=== PATIENT | male | born 1930 | race Caucasian/White ===

== ENCOUNTER 2016-08-28 09:39 | Inpatient (IN) | payer MEDICARE, BC ==
[2016-08-28] VITALS (8 sets, daily range): BP systolic 102–131; BP diastolic 33–71; PULSE 70–76; TEMP 97.4–98.4
[~2016-08-28] VITALS: Ht 167.6 cm; Wt 87.4 kg
[~2016-08-28 09:39] MED LIST: ANTIVERT 12.512.5 MG PO; ASPIRIN E.C. 8181 MG PO; ASPRIN; CARDURA4 MG PO; CEPHALEXIN500 M1 PO; DULCOLAX TAB5 MG PO; EPA FISH OIL1000 MG PO; FLONASE NASAL S16 GM NS; HCTZ12.5TAB PO; LASIX 20MG TABL20 MG PO; LIDODERM 5% PATC1 EA TP; LIDODERM PATCH TP; LIPITOR20 MG PO; NITRO-DUR0.2 MG/PAT TD; NORVASC 5MG5 MG/TAB PO; OMNICEF 300MG300 MG PO; PLAVIX 75MG TAB75 MG PO; PRILOSEC 20MG20 MG PO; PROTONIX 40MG T40 MG PO; TENORMIN 2525 MG/TAB; TOPROL XL 25MG25 MG PO; TYLENOL PM EXTR1 TA1 PO; UROCIT-K 5540 MG/TAB PO; VIT C; VITAMIN B-12100 MCG PO; VITAMIN C500 MG PO; [UNRECOGNIZED DRUG - OTHER] PO
[2016-08-28 10:10] LABS: HEMATOCRIT 46.3 % (42.0-52.0); HEMOGLOBIN 15.1 g/dl (13.5-18.0); MEAN CELL VOLUME 94 fl (80.0-100.0); MEAN CORPUSCULAR HEMOGLOBIN 31 pg (27.0-31.0); MEAN CORPUSCULAR HGB CONC 33 g/dl (33.0-37.0); MEAN PLATELET VOLUME 11.2 fl (7.4-10.4); PLATELET COUNT 188 K/mm3 (130-400); RED BLOOD COUNT 4.95 M/mm3 (4.20-5.60); REDCELL DISTRIBUTION WIDTH-CV 12.8 % (11.5-14.5); WHITE BLOOD COUNT 14.3 K/mm3 (4.8-10.8)
[2016-08-28 10:19] LABS: ADD PATHOLOGY DIFF REVIEW NO
[2016-08-28 10:20] LABS: ADJUSTED CALCIUM 9.2 mg/dL (8.4-10.2); ALBUMIN 3.6 gm/dL (3.5-5.0); BILIRUBIN,TOTAL 1.3 mg/dL (0.0-1.0); C-REACTIVE PROTEIN 0.6 mg/dL (0.0-0.9); CALCIUM 8.9 mg/dL (8.4-10.2); CREATININE, serum 1.65 mg/dL (0.66-1.25); POTASSIUM 3.6 mmol/L (3.4-5.0); TOTAL PROTEIN 6.5 gm/dL (6.4-8.2)
[2016-08-28] MEDS ORDERED: ASPIRIN 81M81 MG/TA2 PO (11:33)
[2016-08-28] MEDS ORDERED: CYMBALTA 60MG60 MG PO (11:35)
[2016-08-28] MEDS ORDERED: TOPROL XL 25MG25 MG PO (11:36)
[2016-08-28] MEDS ORDERED: FLONASEALLERGY NS (11:38)
[2016-08-28 12:15] LABS: BAND 51 % (0-10); NEUTROPHILS 45 % (42.0-75.2); OVALOCYTES 1+; PLATELET ESTIMATE NORMAL (NORMAL); TOTAL CELLS COUNTED 100
[2016-08-28 12:59] LABS: PH 5 (5-8); SQUAMOUS EPITHELIAL 0-2 /hpf; URINE APPEARANCE Cloudy; URINE BACTERIA Moderate /hpf; URINE BILIRUBIN Negative (NEGATIVE); URINE BLOOD 3+ (NEGATIVE); URINE COLOR Yellow; URINE GLUCOSE Negative (NEGATIVE); URINE KETONE Negative (NEGATIVE); URINE RBC 20-50 /hpf; URINE UROBILINOGEN Negative (NEGATIVE)
[2016-08-28 13:00] LABS: URINE WBC >50 /hpf
[2016-08-28] MEDS ORDERED: PROTONIX 40MG T40 MG PO (14:13)
[2016-08-28] MEDS ORDERED: B-12 100 MCG PO (14:14)
[2016-08-29 00:16] VITALS: BP 108/47; PULSE 72; TEMP 97.7
[2016-08-29 06:43] VITALS: BP 109/45; PULSE 71; TEMP 98.1
[2016-08-29 09:52] VITALS: BP 113/53; PULSE 89; TEMP 98.3
[2016-08-29 15:37] LABS: MEAN CELL VOLUME 96 fl (80.0-100.0); MEAN CORPUSCULAR HGB CONC 32 g/dl (33.0-37.0); MEAN PLATELET VOLUME 12.7 fl (7.4-10.4); PLATELET COUNT 128 K/mm3 (130-400); RED BLOOD COUNT 3.83 M/mm3 (4.20-5.60); REDCELL DISTRIBUTION WIDTH-CV 13.6 % (11.5-14.5)
[2016-08-29 15:44] LABS: ADD PATHOLOGY DIFF REVIEW NO; HEMATOCRIT 36.6 % (42.0-52.0); HEMOGLOBIN 11.8 g/dl (13.5-18.0); MEAN CORPUSCULAR HEMOGLOBIN 31 pg (27.0-31.0)
[2016-08-29 16:13] VITALS: TEMP 98.5
[2016-08-29 16:14] LABS: BAND 22 % (0-10); NEUTROPHILS 73 % (42.0-75.2); TOTAL CELLS COUNTED 100
[2016-08-29 16:15] LABS: PLATELET ESTIMATE NORMAL (NORMAL)
[2016-08-29 20:00] VITALS: BP 116/43; PULSE 59; TEMP 98.5
[2016-08-30] VITALS (8 sets, daily range): BP systolic 119–147; BP diastolic 2–72; PULSE 66–78; TEMP 97.6–99.9
[2016-08-30 08:01] LABS: HEMATOCRIT 39.7 % (42.0-52.0); HEMOGLOBIN 12.8 g/dl (13.5-18.0); MEAN CELL VOLUME 95 fl (80.0-100.0); MEAN CORPUSCULAR HEMOGLOBIN 31 pg (27.0-31.0); MEAN CORPUSCULAR HGB CONC 32 g/dl (33.0-37.0); MEAN PLATELET VOLUME 12.9 fl (7.4-10.4); PLATELET COUNT 112 K/mm3 (130-400); RED BLOOD COUNT 4.17 M/mm3 (4.20-5.60); REDCELL DISTRIBUTION WIDTH-CV 13.7 % (11.5-14.5); WHITE BLOOD COUNT 15.6 K/mm3 (4.8-10.8)
[2016-08-30 08:05] LABS: ADD PATHOLOGY DIFF REVIEW NO
[2016-08-30 08:09] LABS: ADJUSTED CALCIUM 9.2 mg/dL (8.4-10.2); CALCIUM 8.4 mg/dL (8.4-10.2); CREATININE, serum 1.93 mg/dL (0.66-1.25); POTASSIUM 3.7 mmol/L (3.4-5.0); TOTAL PROTEIN 5.9 gm/dL (6.4-8.2)
[2016-08-30 13:13] LABS: BAND 16 % (0-10); BASOPHIL 1 % (0-2); METAMYELOCYTE 1 % (0-0); MYELOCYTE 3 % (0-0); NEUTROPHILS 72 % (42.0-75.2); PLATELET ESTIMATE DECREASED (NORMAL); TOTAL CELLS COUNTED 100
[2016-08-30 13:17] LABS: ANISOCYTOSIS 1+; BURR CELLS 1+; DOHLE BODIES PRESENT; TOXIC GRANULATION PRESENT
[2016-08-30 16:35] LABS: PH 5 (5-8); SQUAMOUS EPITHELIAL 0-2 /hpf; URINE APPEARANCE Hazy; URINE BACTERIA Rare /hpf; URINE BILIRUBIN Negative (NEGATIVE); URINE BLOOD 3+ (NEGATIVE); URINE COLOR Yellow; URINE GLUCOSE Negative (NEGATIVE); URINE KETONE Negative (NEGATIVE); URINE RBC >50 /hpf; URINE UROBILINOGEN Negative (NEGATIVE); URINE WBC 20-50 /hpf
[2016-08-31 01:36] VITALS: BP 129/58; PULSE 65; TEMP 98.7
[2016-08-31 05:12] VITALS: BP 120/59; PULSE 59; TEMP 98.8
[2016-08-31 07:21] LABS: MEAN CELL VOLUME 95 fl (80.0-100.0); MEAN CORPUSCULAR HGB CONC 32 g/dl (33.0-37.0); MEAN PLATELET VOLUME 12.7 fl (7.4-10.4); PLATELET COUNT 91 K/mm3 (130-400); RED BLOOD COUNT 3.69 M/mm3 (4.20-5.60); REDCELL DISTRIBUTION WIDTH-CV 13.5 % (11.5-14.5); WHITE BLOOD COUNT 8.5 K/mm3 (4.8-10.8)
[2016-08-31 07:24] LABS: HEMOGLOBIN 11.3 g/dl (13.5-18.0); MEAN CORPUSCULAR HEMOGLOBIN 31 pg (27.0-31.0)
[2016-08-31 07:25] LABS: ADD PATHOLOGY DIFF REVIEW NO
[2016-08-31 07:32] LABS: CALCIUM 8.2 mg/dL (8.4-10.2); CREATININE, serum 1.72 mg/dL (0.66-1.25); POTASSIUM 3.6 mmol/L (3.4-5.0)
[2016-08-31 08:54] LABS: PH 5 (5-8); SQUAMOUS EPITHELIAL None Seen /hpf; URINE APPEARANCE Hazy; URINE BACTERIA Rare /hpf; URINE BILIRUBIN Negative (NEGATIVE); URINE BLOOD 3+ (NEGATIVE); URINE COLOR Yellow; URINE GLUCOSE Negative (NEGATIVE); URINE KETONE Trace (NEGATIVE); URINE RBC >50 /hpf; URINE UROBILINOGEN Negative (NEGATIVE); URINE WBC 20-50 /hpf
[2016-08-31 09:47] VITALS: BP 147/55; PULSE 60; TEMP 98.9
[2016-08-31 12:20] LABS: BAND 6 % (0-10); EOSINOPHIL 3 % (0-4); NEUTROPHILS 74 % (42.0-75.2); TOTAL CELLS COUNTED 100
[2016-08-31 12:21] LABS: PLATELET ESTIMATE NORMAL (NORMAL)
[2016-08-31 13:24] VITALS: BP 142/59; PULSE 67; TEMP 98.8
[2016-08-31] MEDS ORDERED: MIRALAX PA17 GM/Dose PO (13:56)
[2016-08-31] MEDS ORDERED: CEPHALEXIN500 M1 PO (13:56)
[2016-08-31] MEDS ORDERED: FLOMAX 0.40.4 MG/CAP PO (13:56)
[2016-08-31] MEDS ORDERED: DULCOLAX S10 MG/SUPP RC (13:56)
[2016-08-31 15:24] VITALS: BP 142/59; PULSE 67; TEMP 98.8
== END 2016-08-31 16:04 | DRG 690 ==
LOC: COL.ER 09:39 → SURG 12:51
PROVIDERS: Family Medicine; Physician Assistant; Urology
PROC: 0T768DZ Dilation of Right Ureter with Intraluminal Device, Via Natural or Artificial Opening Endoscopic (ICD-10-PCS; principal; 2016-08-28 16:30)
PROC: BT1D1ZZ Fluoroscopy of Right Kidney, Ureter and Bladder using Low Osmolar Contrast (ICD-10-PCS; 2016-08-28 16:30)
DX: N13.6 Pyonephrosis (principal); I10 Essential (primary) hypertension; I25.10 Atherosclerotic heart disease of native coronary artery without angina pectoris; Z95.5 Presence of coronary angioplasty implant and graft; F17.290 Nicotine dependence, other tobacco product, uncomplicated; N17.9 Acute kidney failure, unspecified; D69.6 Thrombocytopenia, unspecified; B96.20 Unspecified Escherichia coli [E. coli] as the cause of diseases classified elsewhere
CPT/HCPCS: 99222; 99232-AI; 99233-AI; A9284; C1769; C2617; G0378; G8987-GO; G8988-GO; J0690; J0692; J1100; J1200; J1580; J1644; J2370; J2405; J2704; J3010; J7030; Q9967

== ENCOUNTER 2016-09-07 10:58 | Day surgery (SDC) | payer MEDICARE, BC ==
[~2016-09-07] VITALS: Ht 170.2 cm; Wt 85.3 kg
[~2016-09-07 10:58] MED LIST changes: +ASPIRIN 81M81 MG/TA2 PO; +B-12 100 MCG PO; +CYMBALTA 60MG60 MG PO; +DULCOLAX S10 MG/SUPP RC; +FLOMAX 0.40.4 MG/CAP PO; +FLONASEALLERGY NS; +MIRALAX PA17 GM/Dose PO
[2016-09-07 12:12] VITALS: BP 127/66; PULSE 66; TEMP 98.1
[2016-09-07 14:55] VITALS: BP 134/57; PULSE 62; TEMP 98.3
[2016-09-07 15:10] VITALS: BP 145/59; PULSE 59
[2016-09-07 15:11] VITALS: TEMP 97.8
[2016-09-07 15:25] VITALS: BP 135/52; PULSE 58
[2016-09-07 15:40] VITALS: BP 122/45; PULSE 61
[2016-09-07] MEDS ORDERED: PYRIDIUM 100MG100 MG PO (15:42)
[2016-09-07] MEDS ORDERED: COLACE 100100 MG/CAP PO (15:42)
[2016-09-07] MEDS ORDERED: NORCO 325 MG-51 TAB PO (15:43)
== END 2016-09-07 16:20 | disposition home or self-care (01) ==
LOC: SDCO 10:58
DX: N20.1 Calculus of ureter (principal); N39.0 Urinary tract infection, site not specified; I48.91 Unspecified atrial fibrillation; E78.00 Pure hypercholesterolemia, unspecified; K21.9 Gastro-esophageal reflux disease without esophagitis; N40.0 Benign prostatic hyperplasia without lower urinary tract symptoms; M17.9 Osteoarthritis of knee, unspecified; B02.29 Other postherpetic nervous system involvement; I25.10 Atherosclerotic heart disease of native coronary artery without angina pectoris; D69.6 Thrombocytopenia, unspecified; K44.9 Diaphragmatic hernia without obstruction or gangrene; N40.2 Nodular prostate without lower urinary tract symptoms; F17.210 Nicotine dependence, cigarettes, uncomplicated; I13.0 Hypertensive heart and chronic kidney disease with heart failure and stage 1 through stage 4 chronic kidney disease, or unspecified chronic kidney disease; N18.3 Chronic kidney disease, stage 3 (moderate); Z79.01 Long term (current) use of anticoagulants; I50.9 Heart failure, unspecified; Z95.0 Presence of cardiac pacemaker; D64.9 Anemia, unspecified; Z87.442 Personal history of urinary calculi; Z86.19 Personal history of other infectious and parasitic diseases; Z82.49 Family history of ischemic heart disease and other diseases of the circulatory system; Z86.010 Personal history of colon polyps; Z96.0 Presence of urogenital implants
CPT/HCPCS: C1769; J0690; J1100; J1885; J1940; J2405; J2704; J3010; J7120; Q9967

== ENCOUNTER 2018-03-31 09:49 | Inpatient (IN) | payer MEDICARE, BC ==
[~2018-03-31] VITALS: Ht 170.2 cm; Wt 86.3 kg
[~2018-03-31 09:49] MED LIST changes: +COLACE 100100 MG/CAP PO; +NORCO 325 MG-51 TAB PO; +PYRIDIUM 100MG100 MG PO
[2018-03-31 10:19] LABS: BASO # 0.1 (0.0-0.2); BASO % 0.6 % (0.0-2.0); EOS # 0.1 (0.0-0.7); GRAN # 7.8 (1.4-6.5); HEMOGLOBIN 14.8 g/dl (13.5-18.0); LYMPH # 2.4 (1.2-3.4); LYMPH % 20.9 % (20.0-51.0); MEAN CELL VOLUME 96 fl (80.0-100.0); MEAN CORPUSCULAR HEMOGLOBIN 31 pg (27.0-31.0); MEAN CORPUSCULAR HGB CONC 32 g/dl (33.0-37.0); MEAN PLATELET VOLUME 10.9 fl (7.4-10.4); MONO # 0.9 (0.1-0.6); MONO % 8.1 % (1.7-9.3); PLATELET COUNT 207 K/mm3 (130-400); RED BLOOD COUNT 4.78 M/mm3 (4.20-5.60); REDCELL DISTRIBUTION WIDTH-CV 12.9 % (11.5-14.5)
[2018-03-31 10:23] LABS: PROTHROMBIN TIME 11.1 SECONDS (9.7-12.8)
[2018-03-31 10:26] LABS: PARTIAL THROMBOPLASTIN TIME 29.3 SECONDS (26.0-37.0)
[2018-03-31 10:29] LABS: ALBUMIN 3.6 gm/dL (3.5-5.0); BILIRUBIN,TOTAL 0.8 mg/dL (0.0-1.0); CALCIUM 9.4 mg/dL (8.4-10.2); CREATININE, serum 1.33 mg/dL (0.66-1.25); POTASSIUM 4.2 mmol/L (3.4-5.0); TOTAL PROTEIN 6.7 gm/dL (6.4-8.2)
[2018-03-31 10:41] LABS: TROPONIN-I 0.024 ng/mL (0.000-0.035)
[2018-03-31 15:53] VITALS: BP 151/71; PULSE 59; TEMP 98.4
--- NOTE | 2018-03-31 18:27 | NUR ---
Pt stable this shift. Pt rates pain 3/10 in left abdomen. Pt alert and oriented. Pt denies SOB. Pt uses urinal. Pt placed on NPO by dr. plata. CArdiology Dr. Billings consulted and ECHO ordered for 04/01/18. Pt has call light in reach and spouse at bedside. Pt denies needs at this time.
[2018-03-31 20:27] VITALS: BP 142/63; PULSE 87; TEMP 98.6
[2018-03-31 23:33] VITALS: BP 132/54; PULSE 58; TEMP 98
--- NOTE | 2018-04-01 00:13 | NUR ---
Completed assessment and medication assessment; NS running at 75ml/hr to LAC wrapped with JIM for support; PT NPO for pending ECHO 04/01/18; A&Ox3, BS active x4, LCTA with bilateral bases diminished; bilateral hearing aides and glassess; PT requested to rest as possible d/t general fatigue from acute illness; PT denies further needs at time of exit; call light placed within reach; will continue to monitor. CDA
--- NOTE | 2018-04-01 03:13 | NUR ---
PT resting intermittently in bed throughout shift; IV running at 75ml/hr to LAC; No further requests or needs at tie of exit; Will continue to monitor. CDA
[2018-04-01 06:42] LABS: BASO % 0.5 % (0.0-2.0); EOS # 0.1 (0.0-0.7); EOS % 1.7 % (0-4.0); GRAN # 5.2 (1.4-6.5); HEMATOCRIT 42.8 % (42.0-52.0); LYMPH # 2.1 (1.2-3.4); LYMPH % 25.6 % (20.0-51.0); MEAN CELL VOLUME 96 fl (80.0-100.0); MEAN CORPUSCULAR HEMOGLOBIN 32 pg (27.0-31.0); MEAN CORPUSCULAR HGB CONC 33 g/dl (33.0-37.0); MEAN PLATELET VOLUME 11.5 fl (7.4-10.4); MONO # 0.7 (0.1-0.6); MONO % 8.8 % (1.7-9.3); PLATELET COUNT 177 K/mm3 (130-400); RED BLOOD COUNT 4.45 M/mm3 (4.20-5.60)
[2018-04-01 07:03] LABS: CHOLESTEROL RISK RATIO 3.2; CREATININE, serum 1.16 mg/dL (0.66-1.25)
--- NOTE | 2018-04-01 07:17 | NUR ---
Report given to NANO Chaparro. CDA
[2018-04-01 08:26] VITALS: BP 146/56; PULSE 57; TEMP 98.1
--- NOTE | 2018-04-01 09:50 | NUR ---
Pt alert and oriented. Pt reports some nausea this am. Pt given PRN Zofran. Pt am assessment completed. Pt also given am medications as ordered and edu as given. Pt converses appropriately and likes to talk about fishing stories and family. Pt denies pain or SOB. Pt has call light in reach and remains NPO.
[2018-04-01 11:02] VITALS: BP 145/64; PULSE 56; TEMP 98.2
--- NOTE | 2018-04-01 11:39 | NUR ---
Plan to return home with Hernan . Patient reports that [place] of [place] with his and she is the primary care contact. Patient reports tath she is to use a walker or cane but does not use it. Patient shares that he has a DPOA and they have nieghbors that help with snow removal and odds and ends. Patient shares that they use [facility] for medications and PCP is Dr. Mercado. Denies the use of home health care. Action:SW provided homehealth care options, educated on resources and services in the area. No additional needs identified.
[2018-04-01 16:35] VITALS: BP 132/60; PULSE 54; TEMP 98.3
[2018-04-01 16:47] LABS: HEMATOCRIT 41.1 % (42.0-52.0); HEMOGLOBIN 13.6 g/dl (13.5-18.0); MEAN CELL VOLUME 95 fl (80.0-100.0); MEAN CORPUSCULAR HEMOGLOBIN 31 pg (27.0-31.0); MEAN CORPUSCULAR HGB CONC 33 g/dl (33.0-37.0); MEAN PLATELET VOLUME 11.5 fl (7.4-10.4); PLATELET COUNT 174 K/mm3 (130-400); RED BLOOD COUNT 4.33 M/mm3 (4.20-5.60)
[2018-04-01 16:57] LABS: PROTHROMBIN TIME 11.7 SECONDS (9.7-12.8)
[2018-04-01 16:59] LABS: PARTIAL THROMBOPLASTIN TIME 31.8 SECONDS (26.0-37.0)
--- NOTE | 2018-04-01 18:22 | NUR ---
Pt stable and resting in bed. Diet advanced to low fat by GI. Pt started on Heparin gtt at 1630 at 10ml/hour. Recheck Hep Xa ordered for 2229. Pt denies pain. Pt IV dc'd from left AC because pt requested d/t beeping continuously. Pt IV started in left and right forearm. Pt has call light in reach.
[2018-04-01 19:56] VITALS: BP 140/77; PULSE 77; TEMP 98
--- NOTE | 2018-04-01 20:45 | NUR ---
Completed assessment and medication administration; PT tolerated all cares well; PT denies pain or discomfort at time of assessment; PT continues Heparin drip therapy as order; Bilateral forearm IVs in place; Alert and confused with intermittent reorientation needed; BS active x4; x1 assist for cares; NS continues at 75ml/hr. PT denies further needs at time of exit; Call light reeducated and placed within reach; Will continue to monitor. CDA
--- NOTE | 2018-04-02 00:20 | NUR ---
Checked on PT reported to have TELE off; PT found on side of bed with both forearm IVs personally removed, gown removed, blood on all surfaces; PT stated that he woke up thinking he was at home and hoped out of bed to start getting ready. PT appeared to be easily reoriented. IVs attempting to be replaced and labs in for redraw at this time. CDA
[2018-04-02 01:13] LABS: PARTIAL THROMBOPLASTIN TIME 97.3 SECONDS (26.0-37.0)
--- NOTE | 2018-04-02 02:00 | NUR ---
Critical lab value received: Heparin XA 0.86: order changed per protocol - restarted at 7ml/hr - after holding for 2hrs and redrawal completed with less than 1.0 value. Received a critical value of 1.02 at approximateyl 2250 04/01/18. Next reassessment 0805. New IV initiation to both UE. CDA
[2018-04-02 02:41] VITALS: BP 147/68; PULSE 59; TEMP 98.2
--- NOTE | 2018-04-02 03:05 | NUR ---
PT resting well in bed with new IV placed to BLE; Heparin reinitated approximately 0200 at new rate of 7ml/hr; PT declined further needs at time of rounds; New IVs wrapped for safety; Call light placed within reach; Will continue to monitor. CDA
--- NOTE | 2018-04-02 06:45 | NUR ---
CALL EO ROOM BY RN BRIGIDO PT SATS DROPPING. RR 40 HR 160. EKG DONE. DUONEB TX GIVEN. COARSE BREATH SOUNDS THROUGHOUT. INCREASED FIO2 T0 100%/
--- NOTE | 2018-04-02 06:45 | NUR ---
Report given to NANO Chaparro. CDA
[2018-04-02 07:30] VITALS: BP 119/63; PULSE 62; TEMP 97.6
[2018-04-02 11:46] VITALS: BP 122/52; PULSE 63; TEMP 98.1
--- NOTE | 2018-04-02 14:15 | NUR ---
Pt given discharge instructions and edu on discharge follow up with Dr. Fields in 1-2wks. Pt and spouse verbalize understanding of discharge instructions and edu. Pt IV's dc'd. Tips intact and no redness or infiltration noted. Pressure drsg applied. Pt assisted with getting dressed and escorted out via wheelchair by aide without incident.
== END 2018-04-02 14:47 | disposition home or self-care (01) | DRG 438 ==
LOC: COL.ER 09:49 → MEDICAL 13:00 → COL.ER 13:00 → MEDICAL 04-02 03:00
PROVIDERS: Emergency Medicine; Physician Assistant; Student in an Organized Health Care Education/Training Program; ADMIT Internal Medicine
DX: K85.20 Alcohol induced acute pancreatitis without necrosis or infection (principal); I21.A1 Myocardial infarction type 2; F10.188 Alcohol abuse with other alcohol-induced disorder; N17.9 Acute kidney failure, unspecified; B02.29 Other postherpetic nervous system involvement; Z95.0 Presence of cardiac pacemaker; Z95.5 Presence of coronary angioplasty implant and graft; I25.10 Atherosclerotic heart disease of native coronary artery without angina pectoris; E78.5 Hyperlipidemia, unspecified; Z88.2 Allergy status to sulfonamides; Z88.8 Allergy status to other drugs, medicaments and biological substances; I12.9 Hypertensive chronic kidney disease with stage 1 through stage 4 chronic kidney disease, or unspecified chronic kidney disease; N18.9 Chronic kidney disease, unspecified; K21.9 Gastro-esophageal reflux disease without esophagitis; N40.0 Benign prostatic hyperplasia without lower urinary tract symptoms
CPT/HCPCS: 99223-AI; 99233-AI; 99239; J1644; J2405; J3010; J7030; Q9967

== ENCOUNTER 2018-04-21 02:44 | Emergency (ER) | payer MEDICARE, BC ==
[~2018-04-21] VITALS: Ht 152.4 cm; Wt 86.4 kg
[2018-04-21 03:05] LABS: HEMATOCRIT 41.3 % (42.0-52.0); HEMOGLOBIN 13.6 g/dl (13.5-18.0); MEAN CELL VOLUME 95 fl (80.0-100.0); MEAN CORPUSCULAR HEMOGLOBIN 31 pg (27.0-31.0); MEAN CORPUSCULAR HGB CONC 33 g/dl (33.0-37.0); MEAN PLATELET VOLUME 10.9 fl (7.4-10.4); PLATELET COUNT 219 K/mm3 (130-400); RED BLOOD COUNT 4.33 M/mm3 (4.20-5.60); REDCELL DISTRIBUTION WIDTH-CV 13.2 % (11.5-14.5)
[2018-04-21 03:20] LABS: ALBUMIN 3.6 gm/dL (3.5-5.0); C-REACTIVE PROTEIN 1.3 mg/dL (0.0-0.9); CALCIUM 9.3 mg/dL (8.4-10.2); CREATININE, serum 1.37 mg/dL (0.66-1.25); POTASSIUM 3.8 mmol/L (3.4-5.0); TOTAL PROTEIN 6.5 gm/dL (6.4-8.2)
[2018-04-21 03:30] LABS: TROPONIN-I 0.049 ng/mL (0.000-0.035)
[2018-04-21] MEDS ORDERED: CEPHALEXIN500 M1 (03:36)
[2018-04-21 03:55] LABS: COLLECTION METHOD CATHETER
[2018-04-21 03:58] LABS: BAND 13 % (0-10); HYPOCHROMIA 1+; LYMPHOCYTE 3 % (20.0-51.0); METAMYELOCYTE 1 % (0-0); NEUTROPHILS 82 % (42.0-75.2); PLATELET ESTIMATE NORMAL (NORMAL)
[2018-04-21 03:59] LABS: TEAR DROP CELLS 1+
[2018-04-21 04:00] LABS: PH 5 (5-8); SQUAMOUS EPITHELIAL None Seen /hpf; URINE APPEARANCE Clear; URINE BACTERIA None Seen /hpf; URINE BILIRUBIN Negative (NEGATIVE); URINE BLOOD Negative (NEGATIVE); URINE COLOR Yellow; URINE GLUCOSE Negative (NEGATIVE); URINE KETONE Negative (NEGATIVE); URINE LEUKOCYTE ESTERASE Trace (NEGATIVE); URINE NITRATE Negative (NEGATIVE); URINE PROTEIN(semi-quant) Negative (NEGATIVE); URINE RBC 0-2 /hpf; URINE UROBILINOGEN Negative (NEGATIVE)
[2018-04-21 05:12] VITALS: TEMP 98.7
[2018-04-21 07:30] VITALS: BP 99/36; PULSE 74
== END 2018-04-21 08:04 | disposition short-term general hospital (02) ==
LOC: COL.ER 02:44
PROVIDERS: Emergency Medicine
DX: A41.9 Sepsis, unspecified organism (principal); R79.89 Other specified abnormal findings of blood chemistry; Z96.0 Presence of urogenital implants; Z95.0 Presence of cardiac pacemaker
CPT/HCPCS: J2543; J7030; Q9967

== ENCOUNTER 2018-05-02 13:06 | Day surgery (SDC) | payer MEDICARE, BC ==
[2018-05-02] VITALS (13 sets, daily range): BP systolic 120–152; BP diastolic 54–78; PULSE 43–63; TEMP 97.5–98.4
[~2018-05-02] VITALS: Ht 170.2 cm; Wt 84.7 kg
[~2018-05-02 13:06] MED LIST changes: +CEPHALEXIN500 M1
[2018-05-02] MEDS ORDERED: AMOXICILLIN 8751 TAB PO (14:35)
[2018-05-02] MEDS ORDERED: PREDNISONE 5MG5 MG PO (14:38)
--- NOTE | 2018-05-02 14:41 | NUR ---
REVIEWED MEDS WITH PATIENT AND HIS . PATIENTS WRITTEN OUT A LIST OF CURRENT MEDS.
--- NOTE | 2018-05-02 14:42 | NUR ---
TO RM 1 AT 1340- CALL LIGHT IN REACH AT BEDSIDE
--- NOTE | 2018-05-02 18:27 | NUR ---
Patient arrived in room at 181. CBI running at a moderate rate. LR infusing. Patient states he can't feel his feet and was wondering when he can get up. Bed alarm set. Post-op vitals initiated. Oriented to room and how to use call light. at bedside. Will monitor.
--- NOTE | 2018-05-02 18:34 | NUR ---
Patient continues to report numbness in bilateral legs.
--- NOTE | 2018-05-02 21:00 | NUR ---
Shift assessment complete. Patient a/ox3, with some short memory deficits. Denies pain. CBI patent, urine noted to be pale pink in tubing. CBI slowed down. Will continue to monitor.
--- NOTE | 2018-05-02 21:15 | NUR ---
Patient ambulated from bed, bed alarm going off. Patient reoriented. States he has to have a BM. Patient [place] [facility] [place]. CBI catheter pulled slightly due to abrupt movement out of bed. Catheter site noted to be bleeding, small amount. CBI still patent. Will continue to monitor. Patient denies pain.
--- NOTE | 2018-05-02 22:00 | NUR ---
CBI catheter site assessed due to previous trauma/bleeding from abrupt movement. Blood dried at catheter site. CBI still patent. Patient denies pain. Will continue to assess.
[2018-05-03 03:13] VITALS: BP 134/61; PULSE 59; TEMP 98.3
--- NOTE | 2018-05-03 03:58 | NUR ---
Patient in bed, sleeping. CBI patent, pink urine noted in tubing. Will continue to assess.
[2018-05-03 09:07] VITALS: BP 152/66; PULSE 59; TEMP 98.3
--- NOTE | 2018-05-03 10:55 | NUR ---
Initial visit; Patient thanked Mechanical Meter Tester for looking in on him and offering God's blessings and to keep him in her prayers.
[2018-05-03 11:20] VITALS: BP 123/76; PULSE 60; TEMP 97.6
--- NOTE | 2018-05-03 14:24 | NUR ---
Monet, with [facility], informed DOROTHY iniguez that the patient has been in and out of the hospital the past couple of weeks. Christa talked with the patient and patient's about a skilled stay at [facility] as the patient's PCP is Dr. Lopez. Monet reports she will look into his prior hospitalizations at other hospitals to see if patient qualifies with Medicare. DOROTHY iniguez met with patient and patient's (Sandy) to discuss discharge plan. The patient lives in [place] with his . The patient's PCP is Dr. Lopez and he receives his medications from [facility]. The patient states he has been using a walker regularly the past month and reports increased weakness the past few weeks. The patient and patient's believe they have completed a DPOA-HC and state that it might be at [facility] or Dr. Ambriz's office. DOROTHY iniguez to request copy from Monet at [facility]. DOROTHY iniguez discussed post-acute rehab with the patient and patient's . Both were open to looking into a stay at [facility]. DOROTHY iniguez presented and explained the patient choice form. Patient verbalized understanding and signed form. DOROTHY iniguez provided a copy. DOROTHY iniguez to send referral to Monet. DOROTHY to continue to follow.
[2018-05-03 17:25] VITALS: BP 133/60; PULSE 61; TEMP 98.7
--- NOTE | 2018-05-03 19:26 | NUR ---
END OF SHIFT NOTE. PATIENT A&O. VSS. ARTEAGA CATHETER TO DEPENDENT DRAINAGE. CBI INFUSING AT A SLOW RATE. DRAINAGE IN CATHETER BAG PINK-TINGED. REPORT GIVEN TO NANO OLIVA.
[2018-05-03 20:00] VITALS: BP 148/76; PULSE 79; TEMP 97.9
[2018-05-04] VITALS: BP 148/62; PULSE 61; TEMP 98
[2018-05-04 04:00] VITALS: BP 146/68; PULSE 63; TEMP 97.9
--- NOTE | 2018-05-04 04:52 | NUR ---
Pt slept during the night, did not have C/O pain during the shift, C/O leakage around the catheter at times, CBI is clamped off and Pt is producing yellow urine without clots noted, shift assessments completed without noted issues, VS have remained stable during the night.
[2018-05-04 08:00] VITALS: BP 146/62; PULSE 64; TEMP 98.2
--- NOTE | 2018-05-04 08:00 | NUR ---
Pt resting in bed A&Ox3. No distress or complaints of shortness or breath. Pt IV infusing at 100mL/hr IV site remains clean,dry and intact with no redness. CBI clamped off prime and pull done at 0800 infused approximently 200mL of solution. Removed peterson with 35mL of solution from ballon, ballon remains intact and started 6 cup.
--- NOTE | 2018-05-04 08:00 | NUR ---
PATIENT A&O. IRREGULAR HEART RHYTHM WITH REGULAR RATE NOTED, OTHERWISE VSS. BOWEL SOUNDS ACTIVE ALL FOUR QUADRANTS. PATIENT TOLERATING FOOD & LIQUIDS WITHOUT ANY COMPLAINTS OF N/V. POSITIVE PEDAL PULSES EQUAL BILATERALLY. 1+ PITTING-EDEMA TO BLE. 3-WAY ARTEAGA CATHETER TO DEPENDENT DRAINAGE WITH RED-TINGED URINE PRESENT IN ARTEAGA BAG AND CBI CLAMPED. IV FLUIDS INFUSING TO LEFT HAND IV. CALL LIGHT WITHIN REACH. BREAKFAST TRAY ORDERED. PATIENT DENIES ANY OTHER NEEDS AT THIS TIME.
--- NOTE | 2018-05-04 11:50 | NUR ---
PATIENT'S LEFT HAND INT DC'D PER PENDING DISCHARGE. PATIENT TOLERATED WELL.
--- NOTE | 2018-05-04 11:58 | NUR ---
[facility] accepted patient for skilled stay, nurse informed.
--- NOTE | 2018-05-04 13:12 | NUR ---
Patient is dc to [facility] for senior care today via wheelchair van at 1345. SW faxed dc orders and informed nurse of time. All parties agreeable. No other discharge needs at this time.
[2018-05-04 13:27] VITALS: BP 146/62; PULSE 64; TEMP 98.2
--- NOTE | 2018-05-04 13:56 | NUR ---
REPORT CALLED TO NANO CORDERO AT [facility].
--- NOTE | 2018-05-04 14:00 | NUR ---
PATIENT PERSONAL BELONGINGS GATHERED AND SENT WITH PATIENT'S . PATIENT TAKEN TO PRIVATE TRANSPORT VEHICLE VIA WHEELCHAIR. PATIENT TRANSFERRED.
== END 2018-05-04 14:00 ==
LOC: SDCO 13:06 → SURG 18:15 → SDCO 05-04 14:00
DX: N40.1 Benign prostatic hyperplasia with lower urinary tract symptoms (principal); N13.8 Other obstructive and reflux uropathy; R39.15 Urgency of urination; R33.9 Retention of urine, unspecified; R39.12 Poor urinary stream; I48.91 Unspecified atrial fibrillation; M17.0 Bilateral primary osteoarthritis of knee; K21.9 Gastro-esophageal reflux disease without esophagitis; K44.9 Diaphragmatic hernia without obstruction or gangrene; E78.00 Pure hypercholesterolemia, unspecified; Z98.61 Coronary angioplasty status; I25.10 Atherosclerotic heart disease of native coronary artery without angina pectoris; I13.0 Hypertensive heart and chronic kidney disease with heart failure and stage 1 through stage 4 chronic kidney disease, or unspecified chronic kidney disease; N18.3 Chronic kidney disease, stage 3 (moderate); I50.9 Heart failure, unspecified; F17.290 Nicotine dependence, other tobacco product, uncomplicated; D69.6 Thrombocytopenia, unspecified; D64.9 Anemia, unspecified; I34.0 Nonrheumatic mitral (valve) insufficiency; Z87.442 Personal history of urinary calculi; G51.0 Bell's palsy; B02.29 Other postherpetic nervous system involvement; Z90.49 Acquired absence of other specified parts of digestive tract; Z79.82 Long term (current) use of aspirin; Z79.899 Other long term (current) drug therapy; Z95.0 Presence of cardiac pacemaker
CPT/HCPCS: OP; J0690; J2405; J2704; J3010; J3480; J7120; J7512

== ENCOUNTER 2018-09-24 14:58 | Emergency (ER) | payer MEDICARE, BC ==
[~2018-09-24] VITALS: Ht 170.2 cm; Wt 77.3 kg
[~2018-09-24 14:58] MED LIST changes: +AMOXICILLIN 8751 TAB PO; +PREDNISONE 5MG5 MG PO
[2018-09-24 15:08] VITALS: TEMP 98.2
[2018-09-24 15:58] LABS: BASO # 0.1 (0.0-0.2); BASO % 1.2 % (0.0-2.0); EOS # 0.2 (0.0-0.7); GRAN % 61.6 % (42.2-75.2); HEMATOCRIT 43.4 % (42.0-52.0); HEMOGLOBIN 13.8 g/dl (13.5-18.0); LYMPH # 2.1 (1.2-3.4); LYMPH % 25.1 % (20.0-51.0); MEAN CELL VOLUME 95 fl (80.0-100.0); MEAN CORPUSCULAR HEMOGLOBIN 30 pg (27.0-31.0); MEAN CORPUSCULAR HGB CONC 32 g/dl (33.0-37.0); MEAN PLATELET VOLUME 11.1 fl (7.4-10.4); MONO # 0.8 (0.1-0.6); MONO % 9.9 % (1.7-9.3); PLATELET COUNT 240 K/mm3 (130-400); RED BLOOD COUNT 4.55 M/mm3 (4.20-5.60); REDCELL DISTRIBUTION WIDTH-CV 13.8 % (11.5-14.5)
[2018-09-24 15:59] LABS: ALANINE AMINOTRANSFERASE < 6 U/L (21-72); ALBUMIN 3.7 gm/dL (3.5-5.0); ALKALINE PHOSPHATASE 98 U/L (50-136); ANION GAP 9 mmol/L (7-16); AST,SGOT 21 U/L (15-37); BILIRUBIN,TOTAL 0.6 mg/dL (0.0-1.0); BLOOD UREA NITROGEN 24 mg/dL (9-20); C-REACTIVE PROTEIN 0.6 mg/dL (0.0-0.9); CALCIUM 9.2 mg/dL (8.4-10.2); CARBON DIOXIDE 24 mmol/L (22-30); CHLORIDE 108 mmol/L (98-107); CREATININE, serum 1.33 (0.66-1.25); GLUCOSE 127 mg/dL (74-106); SODIUM 141 mmol/L (137-145); TOTAL PROTEIN 6.6 gm/dL (6.4-8.2)
[2018-09-24 16:09] LABS: TROPONIN-I 0.046 ng/mL (0.000-0.035)
[2018-09-24 16:22] LABS: COLLECTION METHOD CLEAN CATCH
[2018-09-24 16:34] LABS: ERYTHROCYTE SEDIMENTATION RATE 15 mm/hr (0-30)
[2018-09-24 17:06] LABS: MUCOUS Present /lpf; PH 5 (5-8); URINE APPEARANCE Cloudy; URINE BACTERIA None Seen /hpf; URINE BILIRUBIN Negative (NEGATIVE); URINE BLOOD Negative (NEGATIVE); URINE COLOR Yellow; URINE GLUCOSE Negative (NEGATIVE); URINE KETONE Negative (NEGATIVE); URINE LEUKOCYTE ESTERASE 3+ (NEGATIVE); URINE NITRATE Positive (NEGATIVE); URINE PROTEIN(semi-quant) 2+ (NEGATIVE); URINE UROBILINOGEN Negative (NEGATIVE)
[2018-09-24] MEDS ORDERED: OMNICEF 300MG300 MG PO (18:24)
[2018-09-24 18:44] VITALS: BP 125/69; PULSE 68
== END 2018-09-24 18:46 | disposition home or self-care (01) ==
LOC: COL.ER 14:58
PROVIDERS: Emergency Medicine
DX: M54.12 Radiculopathy, cervical region (principal); R77.8 Other specified abnormalities of plasma proteins; N39.0 Urinary tract infection, site not specified; M19.90 Unspecified osteoarthritis, unspecified site; I10 Essential (primary) hypertension; K21.9 Gastro-esophageal reflux disease without esophagitis
CPT/HCPCS: A4216; J0696

== ENCOUNTER 2019-01-30 15:25 | Emergency (ER) | payer MEDICARE, BC ==
[~2019-01-30] VITALS: Ht 170.2 cm; Wt 84.1 kg
[2019-01-30] MEDS ORDERED: PREDNISONE 5MG5 MG PO (16:10)
[2019-01-30 16:13] LABS: BASO # 0.1 (0.0-0.2); BASO % 0.3 % (0.0-2.0); EOS % 0.1 % (0-4.0); GRAN # 13.2 (1.4-6.5); GRAN % 86.7 % (42.2-75.2); HEMATOCRIT 45.6 % (42.0-52.0); HEMOGLOBIN 14.9 g/dl (13.5-18.0); LYMPH # 1.1 (1.2-3.4); LYMPH % 7.2 % (20.0-51.0); MEAN CELL VOLUME 97 fl (80.0-100.0); MEAN CORPUSCULAR HEMOGLOBIN 32 pg (27.0-31.0); MEAN CORPUSCULAR HGB CONC 33 g/dl (33.0-37.0); MEAN PLATELET VOLUME 10.6 fl (7.4-10.4); MONO # 0.8 (0.1-0.6); MONO % 5.2 % (1.7-9.3); PLATELET COUNT 211 K/mm3 (130-400); RED BLOOD COUNT 4.72 M/mm3 (4.20-5.60); REDCELL DISTRIBUTION WIDTH-CV 13.4 % (11.5-14.5)
[2019-01-30 16:28] LABS: ALANINE AMINOTRANSFERASE 33 U/L (21-72); ALBUMIN 3.8 gm/dL (3.5-5.0); ALKALINE PHOSPHATASE 70 U/L (50-136); ANION GAP 11 mmol/L (7-16); AST,SGOT 25 U/L (15-37); BILIRUBIN,TOTAL 0.8 mg/dL (0.0-1.0); BLOOD UREA NITROGEN 27 mg/dL (9-20); C-REACTIVE PROTEIN < 0.5 mg/dL (0.0-0.9); CALCIUM 8.9 mg/dL (8.4-10.2); CARBON DIOXIDE 23 mmol/L (22-30); CHLORIDE 104 mmol/L (98-107); GLUCOSE 177 mg/dL (74-106); POTASSIUM 4.3 mmol/L (3.4-5.0); SODIUM 139 mmol/L (137-145); TOTAL PROTEIN 6.5 gm/dL (6.4-8.2)
[2019-01-30 16:44] LABS: ERYTHROCYTE SEDIMENTATION RATE 7 mm/hr (0-30)
[2019-01-30 17:26] LABS: COLLECTION METHOD CLEAN CATCH
[2019-01-30 17:38] LABS: MUCOUS Present /lpf; PH 5 (5-8); URINE APPEARANCE Cloudy; URINE BACTERIA Rare /hpf; URINE BILIRUBIN Negative (NEGATIVE); URINE BLOOD 1+ (NEGATIVE); URINE COLOR Yellow; URINE GLUCOSE Negative (NEGATIVE); URINE KETONE Negative (NEGATIVE); URINE LEUKOCYTE ESTERASE 3+ (NEGATIVE); URINE NITRATE Negative (NEGATIVE); URINE PROTEIN(semi-quant) 1+ (NEGATIVE); URINE UROBILINOGEN Negative (NEGATIVE)
[2019-01-30 19:34] VITALS: BP 154/79; PULSE 62; TEMP 98.4
[2019-01-30] MEDS ORDERED: CEFTIN500 MG PO (19:40)
== END 2019-01-30 19:51 | disposition home or self-care (01) ==
LOC: COL.ER 15:25
PROVIDERS: Emergency Medicine
DX: N39.0 Urinary tract infection, site not specified (principal); I50.9 Heart failure, unspecified; I25.10 Atherosclerotic heart disease of native coronary artery without angina pectoris; E78.00 Pure hypercholesterolemia, unspecified; N18.3 Chronic kidney disease, stage 3 (moderate)
CPT/HCPCS: J0696; J7030; Q9967

== ENCOUNTER 2019-05-26 03:16 | Inpatient (IN) | payer MEDICARE, BC ==
[2019-05-26] VITALS (463 sets, daily range): BP systolic 113–129; BP diastolic 71–91; PULSE 81–111; TEMP 96.2–98.4; O2SAT 79–100
[~2019-05-26] VITALS: Ht 175.3 cm; Wt 88.6 kg
[~2019-05-26 03:16] MED LIST changes: +CEFTIN500 MG PO; +CELEBREX 1100 MG/CAP PO; +COMBIGAN 0.2%-0.5 ML OD; +TYLENOL 325MG325 MG PO
[2019-05-26 03:41] LABS: BASO % 0.2 % (0.0-2.0); EOS % 0.3 % (0-4.0); GRAN # 12.3 (1.4-6.5); GRAN % 80.3 % (42.2-75.2); HEMATOCRIT 50.6 % (42.0-52.0); HEMOGLOBIN 16.2 g/dl (13.5-18.0); LYMPH # 1.8 (1.2-3.4); LYMPH % 11.7 % (20.0-51.0); MEAN CELL VOLUME 101 fl (80.0-100.0); MEAN CORPUSCULAR HEMOGLOBIN 32 pg (27.0-31.0); MEAN CORPUSCULAR HGB CONC 32 g/dl (33.0-37.0); MEAN PLATELET VOLUME 12.3 fl (7.4-10.4); MONO % 6.5 % (1.7-9.3); PLATELET COUNT 132 K/mm3 (130-400); RED BLOOD COUNT 5.01 M/mm3 (4.20-5.60); REDCELL DISTRIBUTION WIDTH-CV 14.6 % (11.5-14.5)
[2019-05-26 03:48] LABS: ALBUMIN 3.9 gm/dL (3.5-5.0); BILIRUBIN,TOTAL 1.7 mg/dL (0.0-1.0); CALCIUM 9.3 mg/dL (8.4-10.2); CREATININE, serum 1.93 (0.66-1.25); POTASSIUM 3.9 mmol/L (3.4-5.0); TOTAL PROTEIN 6.8 gm/dL (6.4-8.2)
[2019-05-26 04:04] LABS: TROPONIN-I 0.227 ng/mL (0.000-0.035)
[2019-05-26 05:55] LABS: ARTERIAL BLD GAS O2 SATURATION 87.2 % (92-100); ARTERIAL BLD GAS TCO2 CT 24.6; ARTERIAL BLOOD GAS BASE EXCESS -0.3 (-2-2); ARTERIAL BLOOD GAS HCO3 23.5 meq/L (22-26); ARTERIAL BLOOD GAS PCO2 35.9 mmHg (35-45); ARTERIAL BLOOD GAS PO2 55.9 mmHg (80-100); ARTERIAL BLOOD GAS pH 7.43 (7.35-7.45)
[2019-05-26] MEDS ORDERED: CEFTIN 250250 MG/TAB PO (06:39)
[2019-05-26] MEDS ORDERED: GENTLE LAXATIVE10 MG RC (06:43)
[2019-05-26] MEDS ORDERED: MYLANTA 150 ML150 M1 PO (06:46)
[2019-05-26] MEDS ORDERED: ULTRAM 50MG TAB50 MG PO (06:47)
[2019-05-26] MEDS ORDERED: LASIX 20MG TABL20 MG PO (06:50)
--- NOTE | 2019-05-26 09:08 | NUR ---
MD Misael here for assessment. Urology consulted d/t ED inability to place Baldwin Catheter d/t BPH. MD Noemy called, plan for Cystoscopy with Baldwin Placement at 1100. package center supervisor notified.
--- NOTE | 2019-05-26 09:26 | NUR ---
Pt's spouse Sandy called and updated. All questions answered. Consent obtained for cystoscopy with catheter placement. Pt sleeping on side, HOB@15degrees-denies wish to sit up "I just want to sleep". VSS, no fevers, O2 being titrated by SpO2, WESLEY called in for update, call light in reach. Pt confused on specific location, but able to state he lives in [place], Name and , unable to state: year, living situation, or why he was brought to hospital.
--- NOTE | 2019-05-26 11:30 | NUR ---
16F Coude catheter inserted by Urology. Pt tolerated procedure well. UA sent to lab. Low urine output noted, MD Misael aware, urine nguyen and concentrated IV fluid infusing per order. Dyspepsia improved after Maalox.
[2019-05-26 11:32] LABS: COLLECTION METHOD CLEAN CATCH
[2019-05-26 11:54] LABS: BUDDING YEAST Present /hpf; MUCOUS Present /lpf; PH 5 (5-8); SQUAMOUS EPITHELIAL 0-2 /hpf; URINE APPEARANCE Cloudy; URINE BACTERIA Rare /hpf; URINE BILIRUBIN Negative (NEGATIVE); URINE BLOOD 2+ (NEGATIVE); URINE COLOR Yellow; URINE GLUCOSE Negative (NEGATIVE); URINE KETONE Negative (NEGATIVE); URINE LEUKOCYTE ESTERASE Negative (NEGATIVE); URINE NITRATE Negative (NEGATIVE); URINE PROTEIN(semi-quant) 1+ (NEGATIVE); URINE UROBILINOGEN Negative (NEGATIVE)
--- NOTE | 2019-05-26 19:10 | NUR ---
Report given to NANO Willis.
[2019-05-27] VITALS: BP 101/89; PULSE 106; TEMP 98.9
[2019-05-27 04:00] VITALS: BP 125/73; PULSE 72; TEMP 97.6
--- NOTE | 2019-05-27 05:33 | NUR ---
PT has been confused throughout the night, very forgetful. Will frequently remind PT to leave nasal cannula on, PT will take it off within the following minute. PT has been shouting and making howling noises in his sleep but when this RN enters the room to check on PT, he is asleep and resting soundly. Will continue to monitor and reorient.
[2019-05-27 07:57] LABS: BASO # 0.1 (0.0-0.2); BASO % 0.4 % (0.0-2.0); EOS % 0.1 % (0-4.0); GRAN # 11.5 (1.4-6.5); GRAN % 84.8 % (42.2-75.2); HEMATOCRIT 47.3 % (42.0-52.0); HEMOGLOBIN 14.5 g/dl (13.5-18.0); LYMPH % 7.6 % (20.0-51.0); MEAN CELL VOLUME 103 fl (80.0-100.0); MEAN CORPUSCULAR HEMOGLOBIN 32 pg (27.0-31.0); MEAN CORPUSCULAR HGB CONC 31 g/dl (33.0-37.0); MEAN PLATELET VOLUME 12.9 fl (7.4-10.4); MONO # 0.8 (0.1-0.6); MONO % 6.1 % (1.7-9.3); PLATELET COUNT 106 K/mm3 (130-400); RED BLOOD COUNT 4.58 M/mm3 (4.20-5.60); REDCELL DISTRIBUTION WIDTH-CV 14.8 % (11.5-14.5)
[2019-05-27 08:00] VITALS: BP 116/72; PULSE 88; TEMP 97.8
--- NOTE | 2019-05-27 08:00 | NUR ---
Shift assessment complete at this time. Plan of care reviewed at bedside with patient et over telephone with spouse. Additional time taken to address all needs and concerns of both patient et family. Vitals stable at this time. Pt denies pain or any other discomforts. Bed in low position, call light within reach, will continue to monitor.
[2019-05-27 08:03] LABS: ALANINE AMINOTRANSFERASE 731 U/L (4-49); ALBUMIN 3.1 gm/dL (3.5-5.0); ALKALINE PHOSPHATASE 143 U/L (50-136); ANION GAP 10 mmol/L (7-16); AST,SGOT > 750 U/L (15-37); BILIRUBIN,TOTAL 2.7 mg/dL (0.0-1.0); BLOOD UREA NITROGEN 38 mg/dL (9-20); CALCIUM 8.4 mg/dL (8.4-10.2); CARBON DIOXIDE 24 mmol/L (22-30); CHLORIDE 105 mmol/L (98-107); CREATININE, serum 2.15 (0.66-1.25); GLUCOSE 187 mg/dL (74-106); POTASSIUM 4.6 mmol/L (3.4-5.0); SODIUM 138 mmol/L (137-145); TOTAL PROTEIN 5.7 gm/dL (6.4-8.2)
[2019-05-27 12:00] VITALS: BP 132/94; PULSE 87; TEMP 97.5
--- NOTE | 2019-05-27 12:00 | NUR ---
Pt resting in bed. Denies pain or any other discomforts. Vitals stable at this time. Bed in low position, call light within reach.
[2019-05-27 16:00] VITALS: BP 131/95; PULSE 94; TEMP 97.3
[2019-05-27 18:33] LABS: CREATININE, serum 2.21 (0.66-1.25); FRACTIONAL EXCRETION OF NA+ 0.1 %
--- NOTE | 2019-05-27 19:52 | NUR ---
report received from NANO Stewart.
[2019-05-27 20:00] VITALS: BP 123/92; PULSE 92; TEMP 97.5
[2019-05-28] VITALS: BP 133/79; PULSE 89; TEMP 98.1
[2019-05-28 00:07] LABS: ARTERIAL BLD GAS O2 SATURATION 94.1 % (92-100); ARTERIAL BLD GAS TCO2 CT 15.9; ARTERIAL BLOOD GAS BASE EXCESS -9.2 (-2-2); ARTERIAL BLOOD GAS PCO2 28.6 mmHg (35-45); ARTERIAL BLOOD GAS PO2 78.9 mmHg (80-100); ARTERIAL BLOOD GAS pH 7.34 (7.35-7.45)
[2019-05-28 04:00] VITALS: BP 127/83; PULSE 87; TEMP 97.8
[2019-05-28 05:23] LABS: BASO % 0.2 % (0.0-2.0); EOS % 0.1 % (0-4.0); GRAN # 12.8 (1.4-6.5); GRAN % 86.3 % (42.2-75.2); HEMATOCRIT 42.9 % (42.0-52.0); HEMOGLOBIN 13.4 g/dl (13.5-18.0); LYMPH # 1.1 (1.2-3.4); LYMPH % 7.3 % (20.0-51.0); MEAN CELL VOLUME 104 fl (80.0-100.0); MEAN CORPUSCULAR HEMOGLOBIN 33 pg (27.0-31.0); MEAN CORPUSCULAR HGB CONC 31 g/dl (33.0-37.0); MONO # 0.8 (0.1-0.6); MONO % 5.3 % (1.7-9.3); PLATELET COUNT 97 K/mm3 (130-400); RED BLOOD COUNT 4.12 M/mm3 (4.20-5.60); REDCELL DISTRIBUTION WIDTH-CV 14.6 % (11.5-14.5)
[2019-05-28 05:35] LABS: CALCIUM 8.4 mg/dL (8.4-10.2); CREATININE, serum 2.73 (0.66-1.25); POTASSIUM 4.9 mmol/L (3.4-5.0)
[2019-05-28 08:00] VITALS: BP 129/88; PULSE 97; TEMP 97.9
--- NOTE | 2019-05-28 08:21 | NUR ---
Pt awake, alert and disoriented. Able to state name and identify spouse's name. Call light in reach, unable to comprehend its utilization. Pt refusing food and water.
--- NOTE | 2019-05-28 09:00 | NUR ---
Sandy - spouse & DPOA called to provide update. Sandy stated that for a long time now Zane has been tired and in pain to the point where he has stated on occasion he was ready to pass-away. Education provided on the transition of care from "aggressive" to "[id number]". Sandy stated "I think Hospice would be the best decision for him. I am going to call my son to tell him" - spouse tearful on the telephone - positive reinforcement provided and we conversed about Zane' life accomplishments and honorable activity - mention also made of visits for immediate family is permissible at certain Hospice facilities. Sustainability Communicator notified Admitting and Consulting providers notified
--- NOTE | 2019-05-28 10:27 | NUR ---
The patient's RN, Juan Jose, informed DOROTHY that the patient's is wanting to pursue hospice for the patient at the hospice house. DOROTHY then contacted the patient's , Sandy (ph#[phone]), to discuss discharge plan. The patient has been residing at [facility] for a skilled stay since May 02. Sandy confirms that she is wanting comfort measures for the patient and for the patient to go to the [facility]. She states that she has spoken to the rest of her family about this. Sandy is agreeable with the patient transferring to the hospice house today, if they are able to take today. The patient's PCP is Dr. Maximino Lopez and the patient's DPOA-HC is in EMR. His DPOA-HC is his . DOROTHY contacted and faxed a referral to Blaise at [facility]. SW awaiting their screen. DOROTHY updated Monet at [facility].
--- NOTE | 2019-05-28 15:30 | NUR ---
Pt arrived to floor. Is comfortable at this time. minimally responsive to voice at this time. No signs of pain or distress. Lung sounds are clear. Heart sounds are heard to hear but normal sounds are present. Large bruise on left arm noted. Bowel sounds also present at this time. Baldwin catheter in place, patent draining minimal nguyen colored urine. Pillows are positioned under his right side as he favors the left per report. Fall precautions in place. No further needs percieved at this time.
--- NOTE | 2019-05-28 16:05 | NUR ---
Blaise, at [facility], reports that they are able to accept the patient at the [facility] tomorrow, 05/28, and that Dr. Maximino Lopez will follow the patient. Blaise reports that a transport time of 1100 would work. DOROTHY contacted and updated the patient's , Sandy. Sandy was agreeable to the plan. SW also read the IM form outloud to Sandy. Sandy verbalized understanding and gave SW approval to sign the form on her behalf. DOROTHY updated the patient's RN. DOROTHY attempted to contact [facility] to set up the transport. They were unavailable at this time. SW to set up transport and will continue to follow.
--- NOTE | 2019-05-28 16:29 | NUR ---
Comfort quilt provided to pt and he was repositioned in bed. Will follow up tomorrow.
--- NOTE | 2019-05-28 17:28 | NUR ---
Pt has done well since arriving to the floor. Upon arriving he was comfortable with no signs of distress. He has been repositioned twice with minimal discomfort. Pt was begining to moan and move around in bed as if he may be in pain. I administered 10 mg PRN concentrated Roxanol under his tongue. He was able to follow the command to swallow. Will continue to monitor his behavior for pain.
--- NOTE | 2019-05-28 19:17 | NUR ---
ASSESSMENTY COMPLETE. RESTING IN BED. DOES NOT RESPOND TO COMMANDS. MAKES UNINTELLIGLE SOUDS INTERMITTENTLY WITH TOUCH, REPOSITIONING. JENNI ELAM DD.
--- NOTE | 2019-05-29 07:45 | NUR ---
Assessment complete. Pt resting in bed, moving extremities, appears agitated, taking off gown, grimacing and moaning, dyspnea noted. PRN medication administered per orders. Breath sounds severely diminished throughout all lung walls. Saline lock IV to right AC without s/s of complications. Pt repositioned in bed, no needs reported. Call light in reach. Bed alarm on.
[2019-05-29] MEDS ORDERED: ATIVAN 0.50.5 MG/TAB PO ×2 (09:01→09:18)
[2019-05-29] MEDS ORDERED: SENEXON-S 50-81 EACH PO (09:02)
[2019-05-29] MEDS ORDERED: TRANSDERM-0.5 MG/21 TD (09:03)
[2019-05-29] MEDS ORDERED: ROXANOL 20MG20 MG/ML SL ×2 (09:03→09:16)
[2019-05-29 10:02] VITALS: BP 129/88; PULSE 97; TEMP 97.9
--- NOTE | 2019-05-29 11:09 | NUR ---
Pt discharged to Hospice house via EMS. Saline lock IV to right AC. Roxanol administered prior to transfer d/t previous agitation with movement. Discharge paperwork with form setter.
--- NOTE | 2019-05-29 12:01 | NUR ---
DOROTHY Mg set up EMS transport for 1100am today with [facility]. Haritha provided time to JOVAN Salmeron. DOROTHY contacted patient's Sandy to provide transport time and obtain consent for EMS transfer form. IM form which was completed by Haritha was placed in patient's chart. DOROTHY collaborated with JOVAN Salmeron who sent medications to [facility]. DOROTHY faxed discharge orders to [facility]. No additional needs at this time.
[2019-05-30 14:08] LABS: ARTERIAL BLD GAS O2 SATURATION 81.6 % (92-100); ARTERIAL BLD GAS TCO2 CT 17.1; ARTERIAL BLOOD GAS BASE EXCESS -8.4 (-2-2); ARTERIAL BLOOD GAS HCO3 16.1 meq/L (22-26); ARTERIAL BLOOD GAS PCO2 30.9 mmHg (35-45); ARTERIAL BLOOD GAS PO2 47.8 mmHg (80-100); ARTERIAL BLOOD GAS pH 7.34 (7.35-7.45)
== END 2019-05-29 11:10 | disposition hospice, inpatient (51) | DRG 438 ==
LOC: COL.ER 03:16 → IMCU 06:56 → ICU 06:56 → IMCU 17:41 → MEDICAL 05-28 18:06
PROVIDERS: Emergency Medicine; Internal Medicine
DX: K85.90 Acute pancreatitis without necrosis or infection, unspecified (principal); I21.A1 Myocardial infarction type 2; J96.01 Acute respiratory failure with hypoxia; I50.23 Acute on chronic systolic (congestive) heart failure; G93.41 Metabolic encephalopathy; J18.9 Pneumonia, unspecified organism; I13.0 Hypertensive heart and chronic kidney disease with heart failure and stage 1 through stage 4 chronic kidney disease, or unspecified chronic kidney disease; N17.9 Acute kidney failure, unspecified; E87.2 Acidosis; K86.1 Other chronic pancreatitis; I25.10 Atherosclerotic heart disease of native coronary artery without angina pectoris; N40.0 Benign prostatic hyperplasia without lower urinary tract symptoms; K21.9 Gastro-esophageal reflux disease without esophagitis; E78.5 Hyperlipidemia, unspecified; F03.90 Unspecified dementia, unspecified severity, without behavioral disturbance, psychotic disturbance, mood disturbance, and anxiety; Z87.891 Personal history of nicotine dependence; Y95 Nosocomial condition; Z66 Do not resuscitate; Z51.5 Encounter for palliative care; N18.3 Chronic kidney disease, stage 3 (moderate); D64.9 Anemia, unspecified; I48.91 Unspecified atrial fibrillation; R33.9 Retention of urine, unspecified; Z87.442 Personal history of urinary calculi
CPT/HCPCS: 99223-AI; 99233-AI; 99239; A4216; C1769; J0692; J1644; J2060; J2543; J3370; J7030; J7040